=== PATIENT | female | born 1940 | race Asian ===

== ENCOUNTER 2018-02-24 22:22 | Emergency (ER) | payer MEDICARE, MEDICAID ==
[~2018-02-24] VITALS: Ht 157.5 cm; Wt 57.2 kg
[2018-02-24] MEDS ORDERED: BENADRYL25 MG ORAL ×2 (22:39→23:37)
[2018-02-24 22:42] VITALS: BP 141/72
[2018-02-24] MEDS ORDERED: DiphenhydrAMINE 50mg/ml Inj IVP ONE (23:00)
[2018-02-24] MEDS ORDERED: Solu-MEDROL 125mg Inj IVP ONE (23:00)
[2018-02-24 23:09] VITALS: BP 141/72
[2018-02-24] MEDS ORDERED: PREDNISONE20 MG ORAL (23:37)
--- NOTE | 2018-02-24 23:37 | Emergency Room Report ---
History of Present Illness General Chief Complaint: Allergic Reaction Source: Patient, Family Member Present Illness HPI Is an 78-year-old [place] female who presents with chief complaint of allergic reaction. She is visiting family from [place]. She put some syndrome/cream on her face 2 days ago. It was from [place]. Now she has swelling to her face and eyelid. Burning sensation. She arty wash it off but symptoms still there. Has not take anything other than one Benadryl. Denies any fever chills but denies any nausea vomiting. No restaurant complaint. Nothing made it better. Nothing made it worse. 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 Hx Neurological Problems: Yes - spine surgery Review of Systems Eye: Denies: eye pain, blurred vision ENT: Denies: ear pain, nose congestion, throat swelling Respiratory: Denies: cough, shortness of breath Cardiovascular: Denies: chest pain, palpitations Gastrointestinal: Denies: abdominal pain, diarrhea, nausea, vomiting Musculoskeletal: Denies: back pain, joint pain Skin: Reports: rash Neurological: Denies: headache, numbness Endocrine: Denies: increased thirst, increased urine Hematologic/Lymphatic: Denies: easy bruising All Other Systems: negative except mentioned in HPI Physical Exam Vital Signs Date Time Temp Pulse Resp B/P (MAP) Pulse Ox O2 Delivery O2 Flow Rate FiO2 02/24/18 22:29 98.2 61 16 143/70 95 Room Air vital signs unremarkable Sp02 EP Interpretation: reviewed, normal General Appearance: well appearing, no apparent distress, alert Head: normocephalic, atraumatic Eyes: bilateral eye PERRL, bilateral eye EOMI ENT: hearing grossly normal, normal pharynx Neck: full range of motion, supple, no meningismus Respiratory: chest non-tender, lungs clear, normal breath sounds Cardiovascular #1: regular rate, rhythm, no murmur Gastrointestinal: normal bowel sounds, non tender, no mass, no organomegaly, no bruit, non-distended Musculoskeletal: back normal, gait/station normal, normal range of motion Neurologic: alert, oriented x3 Psychiatric: mood/affect normal Skin: warm/dry, other - Face: She has skin tightness in puffiness to the cheek and upper eyelids. She also has redness to the neck area. Medical Decision Making Diagnostic Impression: Primary Impression: Allergic reaction Qualified Codes: T78.40XA - Allergy, unspecified, initial encounter ER Course Patient with allergic reaction and hospital chemical reaction like a burn to her face. No evidence of anaphylaxis. No evidence of deep infection. We'll discharge home. Last Vital Signs Date Time Temp Pulse Resp B/P (MAP) Pulse Ox O2 Delivery O2 Flow Rate FiO2 02/24/18 22:29 98.2 61 16 143/70 95 Room Air Status: improved Disposition: HOME, SELF-CARE Condition: Stable Scripts Prednisone* (PREDNISONE*) 20 Mg Tablet 40 MG ORAL DAILY, #6 TAB Prov: Royce Woodall MD 02/24/18 Diphenhydramine Hcl* (BENADRYL*) 25 Mg Capsule 50 MG ORAL Q6H PRN for Itching, #30 CAP Prov: Royce Woodall MD 02/24/18 Referrals: NON PHYSICIAN (PCP) Patient Instructions: Allergies Additional Instructions: Follow-up with your doctor in 7 days. Return if worse. Royce Woodall MD Feb 24, 2018 23:37
== END 2018-02-24 23:09 | disposition home or self-care (01) ==
LOC: EMR 22:49
DX: T78.40XA Allergy, unspecified, initial encounter (principal); X58.XXXA Exposure to other specified factors, initial encounter; Y92.89 Other specified places as the place of occurrence of the external cause; Z98.890 Other specified postprocedural states
CPT/HCPCS: 96374; 96375; 99284; J1200; J2930